=== PATIENT | male | born 1930 | race Hispanic/Latino ===

== ENCOUNTER 2018-08-30 14:49 | Observation (INO) | payer MEDICARE, OTHER ==
[~2018-08-30] VITALS: Ht 157.5 cm; Wt 59.0 kg
--- NOTE | 2018-08-30 16:05 | NUR ---
Emergency contact Maximino Burns [phone] Eri [phone]
[2018-08-30 16:24] LABS: BASOPHILS % 0.4 % (0.0-1.0); EOSINOPHILS # (AUTO) 0.1 (0.0-0.4); EOSINOPHILS % 1.1 % (0.0-6.0); HEMATOCRIT 36.1 % (38.2-49.6); LYMPHOCYTES % 18.2 % (18.0-39.1); MEAN CORPUSCULAR HEMOGLOBIN 31.9 pg (28-32); MEAN CORPUSCULAR HGB CONC 33.2 g/dL (31-35); MONOCYTES # (AUTO) 0.7 (0.2-0.8); MONOCYTES % 12.8 % (4.4-11.3); NEUTROPHILS # (AUTO) 3.8 (2.1-6.9); NEUTROPHILS % 67.3 % (38.7-80.0); PLATELET COUNT 155 x10e3/uL (140-360); RED BLOOD COUNT 3.76 x10e6/uL (4.3-5.7); RED CELL DISTRIBUTION WIDTH 14.2 % (11.7-14.4)
[2018-08-30 16:39] LABS: ALANINE AMINOTRANSFERASE 94 IU/L (0-55); ALBUMIN 2.8 g/dL (3.5-5.0); ALBUMIN/GLOBULIN RATIO 0.7 (0.8-2.0); ALKALINE PHOSPHATASE 627 IU/L (40-150); ANION GAP 12.1 mmol/L (8-16); BLOOD UREA NITROGEN 16 mg/dL (7-26); BUN/CREATININE RATIO 17 (6-25); CALCIUM 9.3 mg/dL (8.4-10.2); CARBON DIOXIDE 26 mmol/L (22-29); CHLORIDE 104 mmol/L (98-107); CREATININE, SERUM 0.92 mg/dL (0.72-1.25); EST GLOMERULAR FILTRATION RATE > 60 ML/MIN (60-); GLUCOSE 96 mg/dL (74-118); LIPASE 56 U/L (8-78); POTASSIUM 4.1 mmol/L (3.5-5.1); SODIUM 138 mmol/L (136-145)
[2018-08-30 16:43] LABS: BILIRUBIN,DIRECT 10.1 mg/dL (0.0-0.5)
[2018-08-30 17:13] LABS: INR 1.24; PROTHROMBIN TIME 16.2 seconds (11.9-14.5)
[2018-08-30 17:14] LABS: PARTIAL THROMBOPLASTIN TIME 40.1 seconds (23.8-35.5)
[2018-08-30] MEDS ORDERED: SODIUM CHLORIDE FLUSH 10 ML SYR INJ PRN (17:15)
[2018-08-30] MEDS ORDERED: ONDANSETRON HCL INJ 2MG/ML 2ML 2 MG/ML VIAL IV PRN (17:15)
--- NOTE | 2018-08-30 18:18 | NUR ---
Admitted with principal dgx hyperbilirubinemia and consults to Dr. Katehrine Laguerre and Dr. Hutchison. secretary to board of commissioners calling consults at this time Received patient from ER, a/ox2, in bed and no resp distress, in bed with bed alarms in place, appears to be mostly Guamanian speaking. Some forgetfullness, not able to fully recollect full account of history, family not at bedside but bed alarms in place, VSS and no c/o pains, bed in low locked position and call light within reach.
[2018-08-30 18:33] VITALS: BP 178/84
[2018-08-30] MEDS ORDERED: NAMENDA10 MG PO (18:45)
[2018-08-30] MEDS ORDERED: DONEPEZIL HCL5 MG PO (18:45)
[2018-08-30] MEDS ORDERED: LOSARTAN POTASS25 MG PO (18:45)
--- NOTE | 2018-08-30 19:45 | Consultation ---
DATE OF CONSULTATION: 08/30/2018 REASON FOR CONSULTATION: Left inguinal hernia. HISTORY OF PRESENT ILLNESS: The patient is an 87-year-old male known to me from previous office visits. He is admitted now with progressive jaundice. The patient is senile and does not give a history. I have been consulted because of the family's concern with a left inguinal hernia, which was evaluated by by me last month at the office. At that time, I advised the family that the hernia which was inguinoscrotal and reducible and asymptomatic did not require any surgery because at that time. I advised at that time to have the patient see a urologist because he was having severe symptoms of prostatic hypertrophy and that this could be a factor in exacerbating the hernia. The patient in the interim developed progressive jaundice. Reason for this admission .HI liver enzymes are grossly abnormal with a bilirubin of 11 increased from [address] shows a distended gallbladder and no gross ductal dilatation with no evdence of cholecystitis . His white count is normal. PHYSICAL EXAMINATION: Patiient is afebrile and in no acute distress . The patient is jaundiced. Abdomen is benign. On examination of the groins at this point, with the patient lying down, there is no hernia that it is palpable in the groin or in the scrotum. ASSESSMENT: 1. Left inguinal hernia, which is at this point reducible and not giving him any problems at this time. 2. Severe jaundice, which is progressive, rule out malignancy vs liver failure,doubt cholecystitis. RECOMMENDATION: My recommendation is not to do anything regarding the hernia at this time, to observe him .Obviously he will need a GI workup which has been already requested with GI, Dr. Lara because of the jaundice.If he has liver failure I believe any elective surgery should be be avoided until the nature of his jaundice is worked up.This has been discussed with his grandson. Thank you very much for the courtesy of this consultation. MD BARRINGTON Nur/JOE /[id number]
--- NOTE | 2018-08-30 20:20 | NUR ---
PT OFF UNIT FOR CT OF THE ABDOMEN
--- NOTE | 2018-08-30 20:46 | NUR ---
SPOKE TO DR. MITCHELL AT THIS TIME REGARDING PT HOME MEDS. NEW ORDER RCV TO CONTINUE HOME MEDS
[2018-08-30 20:48] VITALS: BP 174/79
[2018-08-30] MEDS: DONEPEZIL HCL 5 MG TAB PO SCH (21:15)
[2018-08-30] MEDS ORDERED: MEMANTINE 10 MG TAB PO SCH (21:15)
--- NOTE | 2018-08-30 21:16 | Diagnostic Imaging Report ---
EXAMINATION: CT of the abdomen and pelvis with contrast. TECHNIQUE: Helical CT images of the abdomen and pelvis were performed from the lung bases to the lesser trochanters after the intravenous administration of 100 cc of Omnipaque 300 and the oral administration of none. Coronal and sagittal reformatted images were obtained.Dose modulation, iterative reconstruction, and/or weight based adjustment of the mA/kV was utilized to reduce the radiation dose to as low as reasonably achievable. COMPARISON: None. CLINICAL HISTORY:Pain, jaundice DISCUSSION: ABDOMEN/PELVIS: LOWER THORAX:Unremarkable. HEPATOBILIARY: No focal hepatic lesions. No intra-or extrahepatic biliary ductal dilation. Gallbladder is hydropic. Mild intrahepatic dilation. SPLEEN: No splenomegaly. PANCREAS: No focal masses or ductal dilatation. ADRENALS: No adrenal nodules. KIDNEYS/URETERS: Bilateral simple renal cysts, largest on the left 7.6 cm and on the right 6.5 cm. PELVIC ORGANS/BLADDER: The bladder is normal. PERITONEUM/RETROPERITONEUM: No free air or fluid. LYMPH NODES: No intra-abdominal, retroperitoneal, pelvic or inguinal lymphadenopathy. VESSELS: Unremarkable. GI TRACT: No distention or wall thickening. BONES AND SOFT TISSUE: No bony destructive lesions. Left inguinal hernia containing colon. No obstruction. IMPRESSION: No acute CT finding. Distended gallbladder with minimal intrahepatic biliary dilatation. No visualized mass. Simple renal cysts. Left inguinal hernia containing sigmoid colon. No obstruction. Signed by: Dr. Vik Marrero M.D. on 08/30/2018 9:13 PM
[2018-08-30] MEDS: LOSARTAN POTASSIUM 25 MG TAB PO SCH (22:05)
--- NOTE | 2018-08-30 22:24 | Diagnostic Imaging Report ---
HEPATOBILIARY SCAN INDICATION: Transaminitis; jaundice (total bilirubin level 14 mg/dL. Report: Following the administration of 6 mCi of Tc-99m mebrofenin, dynamic images of the abdomen in the anterior projection were obtained through 60 minutes. Perfusion of the liver is normal. The liver is moderately reduced in size. Extraction of tracer from the blood pool by the liver parenchyma is moderately prolonged. The blood pool tracer activity diminishes throughout the study. During the 60 minutes of imaging, no tracer appears within the biliary tract nor in the duodenum or small bowel. Impression: 1. Cholestasis is present and may be obstructive or metabolic. Absence of secretion of tracer by the impaired hepatocytes into the biliary tract precludes filling of the gallbladder. 2. Reduced liver size and impaired hepatocyte function. Signed by: Dr. Larissa Montana M.D. on 08/30/2018 10:21 PM
[2018-08-31] VITALS (8 sets, daily range): BP systolic 116–155; BP diastolic 55–80
[2018-08-31] MEDS ORDERED: IOPAMIDOL 370 MG/ML 200 ML INFUS..BTL INJ ONE (01:28)
[2018-08-31] MEDS ORDERED: SODIUM CHLORIDE 0.9% 50ML 50 ML ONE (01:28)
--- NOTE | 2018-08-31 01:40 | Consultation ---
DATE OF CONSULTATION: 08/30/2018 REASON FOR CONSULT: Progressive jaundice. HISTORY OF PRESENTING ILLNESS: This is an 87-year-old very pleasant male. He speaks his Polish only. I derived medical history from his grandson who is at the bedside. His grandson's name is Shon. The patient has had a routine blood work by his primary care provider, Dr. Baltazar. He was found to have abnormal liver enzymes. The patient has a subsequent blood work done after a few days to check the trend of the liver enzymes. As per patient's grandson, his liver enzymes kept climbing up. Therefore, he was directed to come to get admitted through the emergency room for further evaluation and workup. The patient apparently has lost a significant amount of weight. The patient is not able to quantitate at this time. His appetite has also gone down. He has also noticed urine is turning more dark-colored, stool is juno-colored. Denies any associated nausea or vomiting. No prior history of any peptic ulcer disease. No chronic use of any NSAIDs. The patient has not had any upper endoscopy or colonoscopy in recent time. He has had last CT scan of abdomen and pelvis on 12/15/2012 that was done for evaluation of rectal pain. REVIEW OF SYSTEMS: A 12-point system reviewed, symptomatology is limited to GI system. PAST MEDICAL HISTORY: Hypertension, dementia and left inguinal hernia . PAST SURGICAL HISTORY: Cataract surgery. FAMILY HISTORY: Noncontributory given his advanced age. SOCIAL HISTORY: No smoking, alcohol, or any illicit drug use. He drank alcohol and smoked when he was young. ALLERGIES: NO KNOWN DRUG ALLERGIES. OUTPATIENT MEDICATIONS: Memantine and losartan. PHYSICAL EXAMINATION: VITAL SIGNS: Temperature 96.8, pulse 67, respirations 18, blood pressure 178/84, oxygen saturation 100% on room air. GENERAL: Not in any acute distress. Looked jaundiced. HEENT: Oral mucosa is moist. Bilateral icteric sclerae. NECK: No neck adenopathy. CVS: S1, S2 regular. LUNGS: Bilaterally grossly clear. ABDOMEN: Soft, nondistended, and nontender. No palpable mass, left incomplete inguinal hernia. Bowel sounds present. EXTREMITIES: Warm. No leg edema. LABORATORY DATA: Blood work revealed WBC 5.70, hemoglobin 12, hematocrit 36.1, MCV 96, and platelet count 155. Electrolytes normal. BUN 16, creatinine 0.92. Liver enzymes showed a total bilirubin 14, direct bilirubin 10.1, AST 146, ALT 494, alkaline phosphatase 627, PT 16.2, INR 1.24, PTT 40.1. I do not have any previous liver enzymes values. IMPRESSION: Progressive jaundice, rule out biliary obstruction. PLAN: Urgent CT scan with IV and oral contrast. Continue low-salt diet. Further recommendation based upon CT findings. Magdy Quiroga MD SA/MODL /[id number]
[2018-08-31 06:09] LABS: BASOPHILS % 0.5 % (0.0-1.0); EOSINOPHILS # (AUTO) 0.1 (0.0-0.4); EOSINOPHILS % 1.7 % (0.0-6.0); HEMATOCRIT 34.9 % (38.2-49.6); HEMOGLOBIN 11.2 g/dL (14.0-18.0); LYMPHOCYTES % 17.6 % (18.0-39.1); MEAN CORPUSCULAR HEMOGLOBIN 31.3 pg (28-32); MEAN CORPUSCULAR HGB CONC 32.1 g/dL (31-35); MEAN CORPUSCULAR VOLUME 97.5 fL (81-99); MONOCYTES # (AUTO) 0.9 (0.2-0.8); MONOCYTES % 14.7 % (4.4-11.3); NEUTROPHILS # (AUTO) 3.8 (2.1-6.9); NEUTROPHILS % 65.3 % (38.7-80.0); PLATELET COUNT 170 x10e3/uL (140-360); RED BLOOD COUNT 3.58 x10e6/uL (4.3-5.7)
[2018-08-31 06:18] LABS: ALANINE AMINOTRANSFERASE 78 IU/L (0-55); ALBUMIN 2.4 g/dL (3.5-5.0); ALBUMIN/GLOBULIN RATIO 0.7 (0.8-2.0); ALKALINE PHOSPHATASE 572 IU/L (40-150); BLOOD UREA NITROGEN 14 mg/dL (7-26); BUN/CREATININE RATIO 18 (6-25); CALCIUM 8.8 mg/dL (8.4-10.2); CARBON DIOXIDE 27 mmol/L (22-29); CHLORIDE 106 mmol/L (98-107); EST GLOMERULAR FILTRATION RATE > 60 ML/MIN (60-); GLUCOSE 108 mg/dL (74-118); MAGNESIUM 1.7 MG/DL (1.3-2.1); PHOSPHORUS 3.2 MG/DL (2.3-4.7); SODIUM 140 mmol/L (136-145)
--- NOTE | 2018-08-31 07:00 | NUR ---
PT RESTING IN CHAIR AA0X1. PT HAS HX OF DEMENTIA FAMILY (SON ) IS AT BEDSIDE AT ALL TIMES PT DENIES PAIN. RIGHT WRIST 20G SL PATENT AND DRY PT IS ON RA, NO SOB NOTED WILL CONTINUE TO MONITOR PT CLOSELY, SIDE RAILSX2, BED WHEELS LOCKED CALL LIGHT IS WITHIN EASY REACH, INSTRUCTED TO CALL FOR ASSISTANCE IF NEEDED
--- NOTE | 2018-08-31 08:20 | NUR ---
PT FAMILY C/O OF SURGEON Sybil CULP BEING RUDE , PT REQUESTING ANOTHER PHYSICIAN . CONTACT MD MITCHELL. ORDERS TO CONSULT MD LIZ GIVEN WILL CALL BOTH SURGEONS TO NOTIFY THEM
[2018-08-31] MEDS: DONEPEZIL HCL 5 MG TAB PO SCH (08:44)
[2018-08-31] MEDS: MEMANTINE 10 MG TAB PO SCH ×2 (08:45→21:01)
[2018-08-31] MEDS: LOSARTAN POTASSIUM 25 MG TAB PO SCH (08:47)
--- NOTE | 2018-08-31 09:02 | NUR ---
SPOKE TO MD MITCHELL REGARDING PT C/O OF PAIN. NEW ORDERS RECEIVED
[2018-08-31] MEDS ORDERED: MORPHINE SULFATE INJ 4 MG/ML INJ 1ML IV PRN (09:15)
--- NOTE | 2018-08-31 13:04 | NUR ---
SPOKE WITH HELLEN REGARDING PLAN OF CARE IN TERMS OF GI READ CT RESULTS STATES HE WILL ROUND ON PT TODAY AND DECIDE
--- NOTE | 2018-08-31 16:31 | NUR ---
Call placed to Dr peña regarding patient wandering and found in another patients room. Family was at bedside and informed SOLUTIONS DEVELOPMENT ANALYST that "He does not listen to me. Can you call the dr." Asked MD for a prn sitter order at this time. Will await call back
--- NOTE | 2018-08-31 17:11 | NUR ---
SPOKE WITH MD MITCHELL REGARDING PT ALERTNESS AA0X1 AND WANTING TO LEAVE ROOM AND HOSPITAL EXIT WHEN FAMILY LEAVES ORDERS FOR PRN ATIVAN AND SITTER GIVEN
[2018-08-31] MEDS ORDERED: LORAZEPAM INJ 2 MG/ML VIAL IV PRN (17:15)
--- NOTE | 2018-09-01 02:17 | Progress Note ---
DATE: 08/31/2018 GI Progress Report SUBJECTIVE: The patient continues to have low appetite. Denies any abdominal pain. Urine continues to be dark color. REVIEW OF SYSTEMS: GENERAL: Lethargy, fatigue and weakness. CVS: No chest pain or palpitation. RESPIRATORY: No cough or expectoration. MEDICATIONS: Reviewed as per MAR. PHYSICAL EXAMINATION: VITAL SIGNS: Stable. GENERAL: Jaundice, icteric. HEENT: Bilateral icteric sclerae. ABDOMEN: Soft, nondistended, nontender. No palpable mass or hernia. Positive bowel sound. LABORATORY DATA: Reviewed, liver enzymes trending down. CT of the abdomen and pelvis with contrast revealed hydrops gallbladder, mild intrahepatic biliary ductal dilatation, no biliary dilatation otherwise, no pancreatic mass. Abnormal liver enzymes, no obstructive cause found on CT. PLAN: Continue supportive care. I will check a viral hepatitis serology. Surgery is following for hydrops gallbladder. We will also check tumor marker. If surgery is not doing anything for the gallbladder, then the patient can be discharged from GI standpoint. I will follow in my office for further workup related to abnormal liver enzymes. Magdy Quiroga MD SA/JOE /[id number]
[2018-09-01 04:24] VITALS: BP 141/68
--- NOTE | 2018-09-01 07:00 | NUR ---
BEDSIDE REPORT GIVEN. 1:1 sitter at bedside.
[2018-09-01] MEDS ORDERED: TYLENOL WITH C1 EACH PO (07:46)
[2018-09-01] MEDS ORDERED: XANAX0.25 MG PO (07:46)
[2018-09-01 08:00] VITALS: BP 131/66
[2018-09-01 08:40] VITALS: BP 131/66
[2018-09-01] MEDS: MEMANTINE 10 MG TAB PO SCH (09:00)
[2018-09-01] MEDS: DONEPEZIL HCL 5 MG TAB PO SCH (09:00)
[2018-09-01] MEDS: LOSARTAN POTASSIUM 25 MG TAB PO SCH (09:00)
[2018-09-01] MEDS ORDERED: ONDANSETRON HCL 4 MG ORAL DISINTEGRATING TAB PO PRN (10:15)
--- NOTE | 2018-09-01 10:41 | NUR ---
PT DISCHARGED AT THIS TIME IV REMOVED EARLIER. DISCHARGE INSTRUCTIONS GIVEN EARLIER WITH PRESCRIPTIONS
== END 2018-09-01 10:41 | disposition home or self-care (01) ==
LOC: ER 14:49 → INTOOBSV 17:03 → ERHOLD 17:03 → MED/SURG 18:08
PROVIDERS: ADMIT Internal Medicine; ATTEND Internal Medicine
DX: K40.90 Unilateral inguinal hernia, without obstruction or gangrene, not specified as recurrent (principal); R74.0 Nonspecific elevation of levels of transaminase and lactic acid dehydrogenase [LDH]; R17 Unspecified jaundice
CPT/HCPCS: 36415 ×2; 74177; 78227; 80053 ×2; 82140; 82248; 82977; 83690; 83735; 84100; 85025 ×2; 85610; 85730; 86140; 99284; A9537; G0378 ×3; Q9967

== ENCOUNTER 2019-09-24 00:37 | Inpatient (IN) | payer MEDICARE, OTHER ==
[~2019-09-24] VITALS: Ht 165.1 cm; Wt 60.1 kg
[~2019-09-24 00:37] MED LIST: DONEPEZIL HCL5 MG PO; LOSARTAN POTASS25 MG PO; NAMENDA10 MG PO; TYLENOL WITH C1 EACH PO; XANAX0.25 MG PO
[2019-09-24] MEDS ORDERED: CEFEPIME 2 GM/NS 0.9% 100 ML 100 ML IV ONE (00:45)
[2019-09-24] MEDS ORDERED: ACETAMINOPHEN 325 MG TAB PO ONE (00:45)
[2019-09-24] MEDS ORDERED: SODIUM CHLORIDE 0.9% 1000ML 1,000 ML IV ONE ×2 (00:45→04:45)
--- NOTE | 2019-09-24 01:03 | NUR ---
PTS GRANDSON, POA, THAT LIVES WITH PATIENT WILL ACCOMPANY PT TO BS PT HAS ADVANCED DEMENTIA AND IS COVID PUI; AOS INFORMED
--- NOTE | 2019-09-24 01:16 | Emergency Department Note ---
History of Present Illnes History of Present Illness Chief Complaint: General Medicine Complaints History of Present Illness This is a 88 year old male with advanced Alzheimer's brought in by his grandson with complaint of fever, weakness, abdominal pain since Tuesday. Per grandson patient has not had any nausea vomiting diarrhea has not had any cough. . Historian: Family Member (ENTIRE HPI PER GRANDSON) Arrival Mode: Car Onset (how long ago): day(s) (2) Location: ABD Quality: PAIN Radiation: Reports non-radiation Severity: mild Onset quality: gradual Duration (how long): day(s) (2) Progression: unchanged Chronicity: new Relieving factors: none Exacerbating factors: none Associated symptoms: Reports fever/chills, Reports weakness Treatments prior to arrival: none Past Medical/Family History Physician Review I have reviewed the patient's past medical and family history. Any updates have been documented here. Past Medical History Recent Fever: No Clinical Suspicion of Infectio: No New/Unexplained Change in Ment: No Past Medical History: Hypertension Other Medical History: DEMENTIA Past Surgical History: Cataract Removal Other Surgery: BILE DUCT Family History Family history of heart diseas: No Other Last Tetanus: OOD Review of Systems ROS Narrative Unable to obtain ROS: other (ROS PRE GRANDSON PT'S SENIOR SOLUTIONS ENGINEER) Review of Systems Constitutional: Reports as per HPI EENTM: Reports no symptoms Cardiovascular: Reports no symptoms Respiratory: Reports no symptoms Gastrointestinal: Reports as per HPI Genitourinary: Reports no symptoms Musculoskeletal: Reports no symptoms Integumentary: Reports no symptoms Neurological: Reports no symptoms Psychological: Reports no symptoms Endocrine: Reports no symptoms Hematological/Lymphatic: Reports no symptoms Physical Exam Related Data Allergies: Coded Allergies: No Known Allergies (Unverified , 08/30/18) Triage Vital Signs Vital Signs Date Time Temp Pulse Resp B/P (MAP) Pulse Ox O2 Delivery O2 Flow Rate FiO2 09/24/19 00:38 100.0 91 21 164/91 98 Vital signs reviewed: Yes Physical Exam CONSTITUTIONAL Constitutional: Present well-developed, Present well-nourished HENT HENT: Present normocephalic, Present atraumatic, Present oropharynx clear/moist, Present nose normal HENT L/R: Present left ext ear normal, Present right ext ear normal EYES Eyes: Reports PERRL, Reports conjunctivae normal NECK Neck: Present ROM normal PULMONARY Pulmonary: Present effort normal, Present other (DECREASED BS AT BASES MARIANGEL ATERAL) CARDIOVASCULAR Cardiovascular: Present regular rhythm, Present heart sounds normal, Present capillary refill normal, Present tachycardia (106) GASTROINTESTINAL Abdominal: Present soft, Present bowel sounds normal, Present tender (LEFT ABD, UPPER ABD MILD) GENITOURINARY Genitourinary: Present exam deferred SKIN Skin: Present warm, Present dry MUSCULOSKELETAL Musculoskeletal: Present ROM normal NEUROLOGICAL Neurological: Present alert, Present oriented x 3, Present no gross motor or sensory deficits PSYCHOLOGICAL Psychological: Present mood/affect normal, Present judgement normal Results Laboratory Laboratory Laboratory Tests Test 09/24/19 04:18 09/24/19 00:39 09/24/19 00:04 Urine Color Yellow (YELLOW) Urine Clarity Clear (CLEAR) Urine pH 7 (5 - 7) Urine Specific [place] 1.015 (1.010-1.025) Urine Protein Negative (NEGATIVE) Urine Glucose (UA) Negative (NEGATIVE) Urine Ketones Negative (NEGATIVE) Urine Blood Negative (NEGATIVE) Urine Nitrite Negative (NEGATIVE) Urine Bilirubin Negative (NEGATIVE) Urine Urobilinogen 0.2 mg/dL (0.2 - 1) Urine Leukocyte Esterase Negative (NEGATIVE) Urine RBC 0-5 /HPF (0-5) Urine WBC 0-5 /HPF (0-5) Urine Epithelial Cells Few /LPF (NONE) Urine Bacteria Rare /HPF (NONE) Prothrombin Time 13.1 seconds (11.9-14.5) Prothromb Time International Ratio 0.94 Activated Partial Thromboplast Time 35.4 seconds (23.8-35.5) White Blood Count 13.76 x10e3/uL (4.8-10.8) Red Blood Count 3.67 x10e6/uL (4.3-5.7) Hemoglobin 10.8 g/dL (14.0-18.0) Hematocrit 34.6 % (38.2-49.6) Mean Corpuscular Volume 94.3 fL (81-99) Mean Corpuscular Hemoglobin 29.4 pg (28-32) Mean Corpuscular Hemoglobin Concent 31.2 g/dL (31-35) Red Cell Distribution Width 12.3 % (11.7-14.4) Platelet Count 163 x10e3/uL (140-360) Neutrophils (%) (Auto) 74.5 % (38.7-80.0) Lymphocytes (%) (Auto) 13.1 % (18.0-39.1) Monocytes (%) (Auto) 11.5 % (4.4-11.3) Eosinophils (%) (Auto) 0.3 % (0.0-6.0) Basophils (%) (Auto) 0.2 % (0.0-1.0) Neutrophils # (Auto) 10.3 (2.1-6.9) Lymphocytes # (Auto) 1.8 (1.0-3.2) Monocytes # (Auto) 1.6 (0.2-0.8) Eosinophils # (Auto) 0.0 (0.0-0.4) Basophils # (Auto) 0.0 (0.0-0.1) Absolute Immature Granulocyte (auto 0.06 x10e3/uL (0-0.1) Sodium Level 134 mmol/L (136-145) Potassium Level 4.8 mmol/L (3.5-5.1) Chloride Level 100 mmol/L (98-107) Carbon Dioxide Level 22 mmol/L (22-29) Anion Gap 16.8 mmol/L (8-16) Blood Urea Nitrogen 30 mg/dL (7-26) Creatinine 1.13 mg/dL (0.72-1.25) Estimat Glomerular Filtration Rate > 60 ML/MIN (60-) BUN/Creatinine Ratio 27 (6-25) Glucose Level 130 mg/dL (74-118) Lactic Acid Level 2.0 mmol/L (0.5-2.0) Calcium Level 9.5 mg/dL (8.4-10.2) Total Bilirubin 0.4 mg/dL (0.2-1.2) Aspartate Amino Transf (AST/SGOT) 18 IU/L (5-34) Alanine Aminotransferase (ALT/SGPT) 14 IU/L (0-55) Alkaline Phosphatase 214 IU/L (40-150) Creatine Kinase 66 IU/L (30-200) Creatine Kinase MB 1.30 ng/mL (0-5.0) Troponin I 0.045 ng/mL (0-0.300) Total Protein 8.3 g/dL (6.5-8.1) Albumin 3.4 g/dL (3.5-5.0) Globulin 4.9 g/dL (2.3-3.5) Albumin/Globulin Ratio 0.7 (0.8-2.0) Laboratory Tests Test 09/24/19 00:39 09/24/19 00:04 Prothrombin Time 13.1 seconds (11.9-14.5) Prothromb Time International Ratio 0.94 Activated Partial Thromboplast Time 35.4 seconds (23.8-35.5) White Blood Count 13.76 x10e3/uL (4.8-10.8) Red Blood Count 3.67 x10e6/uL (4.3-5.7) Hemoglobin 10.8 g/dL (14.0-18.0) Hematocrit 34.6 % (38.2-49.6) Mean Corpuscular Volume 94.3 fL (81-99) Mean Corpuscular Hemoglobin 29.4 pg (28-32) Mean Corpuscular Hemoglobin Concent 31.2 g/dL (31-35) Red Cell Distribution Width 12.3 % (11.7-14.4) Platelet Count 163 x10e3/uL (140-360) Neutrophils (%) (Auto) 74.5 % (38.7-80.0) Lymphocytes (%) (Auto) 13.1 % (18.0-39.1) Monocytes (%) (Auto) 11.5 % (4.4-11.3) Eosinophils (%) (Auto) 0.3 % (0.0-6.0) Basophils (%) (Auto) 0.2 % (0.0-1.0) Neutrophils # (Auto) 10.3 (2.1-6.9) Lymphocytes # (Auto) 1.8 (1.0-3.2) Monocytes # (Auto) 1.6 (0.2-0.8) Eosinophils # (Auto) 0.0 (0.0-0.4) Basophils # (Auto) 0.0 (0.0-0.1) Absolute Immature Granulocyte (auto 0.06 x10e3/uL (0-0.1) Sodium Level 134 mmol/L (136-145) Potassium Level 4.8 mmol/L (3.5-5.1) Chloride Level 100 mmol/L (98-107) Carbon Dioxide Level 22 mmol/L (22-29) Anion Gap 16.8 mmol/L (8-16) Blood Urea Nitrogen 30 mg/dL (7-26) Creatinine 1.13 mg/dL (0.72-1.25) Estimat Glomerular Filtration Rate > 60 ML/MIN (60-) BUN/Creatinine Ratio 27 (6-25) Glucose Level 130 mg/dL (74-118) Lactic Acid Level 2.0 mmol/L (0.5-2.0) Calcium Level 9.5 mg/dL (8.4-10.2) Total Bilirubin 0.4 mg/dL (0.2-1.2) Aspartate Amino Transf (AST/SGOT) 18 IU/L (5-34) Alanine Aminotransferase (ALT/SGPT) 14 IU/L (0-55) Alkaline Phosphatase 214 IU/L (40-150) Creatine Kinase 66 IU/L (30-200) Creatine Kinase MB 1.30 ng/mL (0-5.0) Troponin I 0.045 ng/mL (0-0.300) Total Protein 8.3 g/dL (6.5-8.1) Albumin 3.4 g/dL (3.5-5.0) Globulin 4.9 g/dL (2.3-3.5) Albumin/Globulin Ratio 0.7 (0.8-2.0) Lab results reviewed: Yes Imaging Imaging results reviewed: Yes Impressions CT ABD/PELVIS IMPRESSION: 1. Several new hepatic hypodense lesions. Differentials include metastatic disease versus abscesses. 2. Bibasilar peripheral reticular lung markings, right ureter left, probably fibrotic changes. Underlying pneumonia in the right lung base cannot be excluded in the appropriate clinical context. 3. Enlarged prostate gland. Procedure: [id number] DX/CHEST SINGLE (PORTABLE) Exam Date: Exam Time: REPORT STATUS: Signed EXAMINATION: CHEST SINGLE (PORTABLE) INDICATION: ^Y ^FEVER ^Y COMPARISON: None FINDINGS: AP view TUBES and LINES: None. LUNGS: Low lung volumes. Central vascular congestion, accentuated by low lung volumes. Mild bibasilar subsegmental atelectasis. PLEURA: No significant pleural effusion or pneumothorax. HEART AND MEDIASTINUM: The cardiomediastinal silhouette is prominent on this AP view, accentuated by lower volumes. BONES AND SOFT TISSUES: No acute osseous lesion. Soft tissues are unremarkable. UPPER ABDOMEN: No free air under the diaphragm. IMPRESSION: Central vascular congestion, accentuated by low lung volumes. Underlying pneumonia in the perihilar regions cannot be excluded in the appropriate clinical context. Signed by: Dr. Tacho Draper MD on 09/24/2019 3:43 AM Procedures 12 Lead ECG Interpretation ECG Interpretation : ECG: ECG 1 Milk And Cream Grader: Interpreted by ED physician Date: Sep 24, 2019 Time: 01:16 Rhythm: sinus rhythm Rate: normal BPM: 90 QRS axis: normal T waves normal: Yes Other findings: no other findings Clinical Impression: normal ECG Assessment & Plan Medical Decision Making MDM Patient up and ultimately is brought in by grandson who is his smokehouse worker for reported fever abdominal pain weakness. Symptoms ongoing for 2 days. CBC, CMP, CARDIAC enzymes, EKG, chest x-ray, blood cultures, UA, urine culture, lactic acid, Covid 19, CT abdomen and pelvis, ordered to eval for sepsis, UTI, pneumonia, electrolyte abnormality, myocardial infarction, diverticulitis, colitis, bowel obstruction, Covid 19, Cefepime 2 g IV ordered. Tylenol 975 mg by mouth ordered. 1 L normal saline IV ordered. 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 I spoke with Dr. Palomino patient Rocky for pneumonia. Patient's Covid test is pending. Assessment & Plan Final Impression: (1) Fever (2) Pneumonia Depart Disposition: ADMITTED Last Vital Signs Date Time Temp Pulse Resp B/P (MAP) Pulse Ox O2 Delivery O2 Flow Rate FiO2 09/24/19 00:38 100.0 91 21 164/91 98 Home Meds Active Scripts Acetaminophen With Codeine (TYLENOL WITH CODEINE #3 TABLET) 1 Each Tablet, 300 MG PO Q8H PRN for pain, #30 TAB Prov:ASH MITCHELL MD 09/01/18 Alprazolam (XANAX) 0.25 Mg Tablet, 0.25 MG PO Q8H for 10 Days Prov:ASH MITCHELL MD 09/01/18 Reported Medications Memantine Hcl (NAMENDA) 10 Mg Tablet, 10 MG PO BID, #30 TAB 08/30/18 Donepezil Hcl (DONEPEZIL HCL) 5 Mg Tablet, 5 MG PO DAILY 08/30/18 Losartan Potassium (LOSARTAN POTASSIUM) 25 Mg Tablet, 25 MG PO DAILY 08/30/18 Medications in the ED Sodium Chloride 1,000 ml @ 999 mls/hr Q1H1M ONCE IV Last administered on 09/24/19 01:08; Admin Dose 999 MLS/HR; Start 09/24/19 at 00:45; Stop 09/24/19 at 01:45 Cefepime HCl 100 ml @ 200 mls/hr ONCE ONCE IV Last administered on 09/24/19at 01:09; Admin Dose 200 MLS/HR; Start 09/24/19 at 00:45; Stop 09/24/19 at 01:14 Acetaminophen 975 mg ONCE ONCE PO Last administered on 09/24/19at 01:08; Admin Dose 975 MG; Start 09/24/19 at 00:45; Stop 09/24/19 at 00:49; Status DC MARIANNA ABREU MD Sep 24, 2019 01:16
[2019-09-24 01:35] LABS: BASOPHILS % 0.2 % (0.0-1.0); EOSINOPHILS % 0.3 % (0.0-6.0); HEMATOCRIT 34.6 % (38.2-49.6); HEMOGLOBIN 10.8 g/dL (14.0-18.0); LYMPHOCYTES # (AUTO) 1.8 (1.0-3.2); LYMPHOCYTES % 13.1 % (18.0-39.1); MEAN CORPUSCULAR HEMOGLOBIN 29.4 pg (28-32); MEAN CORPUSCULAR HGB CONC 31.2 g/dL (31-35); MEAN CORPUSCULAR VOLUME 94.3 fL (81-99); MONOCYTES # (AUTO) 1.6 (0.2-0.8); MONOCYTES % 11.5 % (4.4-11.3); NEUTROPHILS # (AUTO) 10.3 (2.1-6.9); NEUTROPHILS % 74.5 % (38.7-80.0); PLATELET COUNT 163 x10e3/uL (140-360); RED BLOOD COUNT 3.67 x10e6/uL (4.3-5.7); RED CELL DISTRIBUTION WIDTH 12.3 % (11.7-14.4)
[2019-09-24 01:49] LABS: INR 0.94; PROTHROMBIN TIME 13.1 seconds (11.9-14.5)
[2019-09-24 01:50] LABS: PARTIAL THROMBOPLASTIN TIME 35.4 seconds (23.8-35.5)
[2019-09-24 01:58] LABS: ALANINE AMINOTRANSFERASE 14 IU/L (0-55); ALBUMIN 3.4 g/dL (3.5-5.0); ALBUMIN/GLOBULIN RATIO 0.7 (0.8-2.0); ALKALINE PHOSPHATASE 214 IU/L (40-150); ANION GAP 16.8 mmol/L (8-16); BLOOD UREA NITROGEN 30 mg/dL (7-26); BUN/CREATININE RATIO 27 (6-25); CALCIUM 9.5 mg/dL (8.4-10.2); CARBON DIOXIDE 22 mmol/L (22-29); CHLORIDE 100 mmol/L (98-107); CREATINE KINASE 66 IU/L (30-200); CREATININE, SERUM 1.13 mg/dL (0.72-1.25); EST GLOMERULAR FILTRATION RATE > 60 ML/MIN (60-); GLUCOSE 130 mg/dL (74-118); POTASSIUM 4.8 mmol/L (3.5-5.1); SODIUM 134 mmol/L (136-145)
[2019-09-24] MEDS ORDERED: SODIUM CHLORIDE 0.9% 50ML 50 ML ONE (02:19)
[2019-09-24] MEDS ORDERED: IOPAMIDOL 370 MG/ML 200 ML INFUS..BTL INJ ONE (02:20)
--- NOTE | 2019-09-24 03:45 | Diagnostic Imaging Report ---
EXAM: CT Abdomen and Pelvis WITH contrast INDICATION: ^Y ^ABD PAIN ^Y COMPARISON: CT dated 08/30/2018 TECHNIQUE: Abdomen and pelvis were scanned utilizing a multidetector helical scanner from the lung base to the pubic symphysis after administration of IV contrast. Coronal and sagittal reformations were obtained. Dose modulation, iterative reconstruction, and/or weight based adjustment of the mA/kV was utilized to reduce the radiation dose to as low as reasonably achievable. Routine protocol was performed. Scan was performed when during portal venous phase. IV CONTRAST: 100 mL of Isovue-370 ORAL CONTRAST: None COMPLICATIONS: None RADIATION DOSE: Total DLP: 671.50 mGy*cm Estimated effective dose: (DLP x 0.015 x size factor) mSv CTDIvol has been reviewed. It is below the limits set by the Radiation Protocol Committee (RPC). FINDINGS: LINES and TUBES: Common bile duct stent. LOWER THORAX: Borderline cardiomegaly. Bibasilar peripheral reticular lung markings, right ureter left, probably fibrotic changes. HEPATOBILIARY: Several right and left hepatic lobe hypodense lesions, new from prior exam mild intrahepatic biliary dilatation and new pneumobilia. New common bile duct stent in place. GALLBLADDER: No radio-opaque stones or sludge. No wall thickening. SPLEEN: No splenomegaly. PANCREAS: No focal masses or ductal dilatation. ADRENALS: No adrenal nodules KIDNEYS/URETERS: Kidneys enhance symmetrically. No hydronephrosis. Several bilateral renal cysts, the largest in the left inferior pole is an exophytic cyst measuring 10.8 cm. No stones. GI TRACT: No evidence of bowel obstruction. Rectum is distended with large amount of stool, which could represent fecal impaction. Normal appendix. PELVIC ORGANS/BLADDER: Prostate is enlarged with a coarse calcification. Mild bladder wall thickening, likely due to chronic outflow obstruction. LYMPH NODES: No lymphadenopathy. VESSELS: Unremarkable. PERITONEUM / RETROPERITONEUM: No free air or fluid. BONES: Generalized demineralization. Degenerative changes of spine. Unchanged L2 vertebral body lucency, likely developing Schmorl's node. SOFT TISSUES: Unremarkable. IMPRESSION: 1. Several new hepatic hypodense lesions. Differentials include metastatic disease versus abscesses. 2. Bibasilar peripheral reticular lung markings, right ureter left, probably fibrotic changes. Underlying pneumonia in the right lung base cannot be excluded in the appropriate clinical context. 3. Enlarged prostate gland. Signed by: Dr. Tacho Draper MD on 09/24/2019 3:42 AM
--- NOTE | 2019-09-24 03:46 | Diagnostic Imaging Report ---
EXAMINATION: CHEST SINGLE (PORTABLE) INDICATION: ^Y ^FEVER ^Y COMPARISON: None FINDINGS: AP view TUBES and LINES: None. LUNGS: Low lung volumes. Central vascular congestion, accentuated by low lung volumes. Mild bibasilar subsegmental atelectasis. PLEURA: No significant pleural effusion or pneumothorax. HEART AND MEDIASTINUM: The cardiomediastinal silhouette is prominent on this AP view, accentuated by lower volumes. BONES AND SOFT TISSUES: No acute osseous lesion. Soft tissues are unremarkable. UPPER ABDOMEN: No free air under the diaphragm. IMPRESSION: Central vascular congestion, accentuated by low lung volumes. Underlying pneumonia in the perihilar regions cannot be excluded in the appropriate clinical context. Signed by: Dr. Tacho Draper MD on 09/24/2019 3:43 AM
[2019-09-24 04:32] LABS: CLARITY,URINE CLEAR (CLEAR); COLOR,URINE YELLOW (YELLOW); KETONES,URINE NEGATIVE (NEGATIVE); LEUKOCYTE ESTERASE ,URINE NEGATIVE (NEGATIVE); NITRITE,URINE NEGATIVE (NEGATIVE); PROTEIN,URINE DIPSTICK NEGATIVE (NEGATIVE)
[2019-09-24 04:33] LABS: BACTERIA,URINE RARE /HPF; BILIRUBIN,URINE NEGATIVE (NEGATIVE); EPITHELIAL CELLS,URINE FEW /LPF; RBC,URINE 0-5 /HPF (0-5); URINE UROBILINOGEN 0.2 mg/dL (0.2 - 1); WBC,URINE (MAN) 0-5 /HPF (0-5)
[2019-09-24] MEDS: AZITHROMYCIN 500MG/NS 250 ML 250 ML IV SCH (04:36)
[2019-09-24] MEDS ORDERED: CEFEPIME HCL 2 GM/SOD CHL 0.9% 100 ML BAG IV SCH (06:00)
[2019-09-24] MEDS ORDERED: HYDRALAZINE HCL 20 MG/ML VIAL IV PRN (06:15)
[2019-09-24] MEDS ORDERED: ONDANSETRON HCL INJ 2MG/ML 2ML 2 MG/ML VIAL IV PRN (06:15)
--- NOTE | 2019-09-24 06:51 | NUR ---
REPORT GIVEN TO ROSA RN Addendum: 09/24/19 at 0709 by TRISHA WALKING ROUNDS
[2019-09-24] MEDS: ACETAMINOPHEN 325 MG TAB PO PRN ×2 (08:19→18:48)
[2019-09-24 08:20] LABS: CHOL/HDL RATIO 2.3 (3.9-4.7)
[2019-09-24 09:00] LABS: CREATINE KINASE MB 1.1 ng/mL (0-5.0)
[2019-09-24] MEDS: CEFEPIME 2 GM/NS 0.9% 100 ML 100 ML IV SCH ×2 (10:28→18:25)
[2019-09-24] MEDS: FAMOTIDINE 20 MG/2 ML VIAL IV SCH ×2 (10:28→18:25)
[2019-09-24] MEDS ORDERED: SODIUM CHLORIDE 0.9% 1000ML 1,000 ML ONE (15:53)
[2019-09-24] MEDS: METRONIDAZOLE 500MG/NS 100ML 100 ML IV SCH (16:05)
[2019-09-24] MEDS ORDERED: MEMANTINE 10 MG TAB PO SCH (17:00)
[2019-09-24 20:54] LABS: CREATINE KINASE MB 0.7 ng/mL (0-5.0)
[2019-09-24] MEDS ORDERED: TRAZODONE HCL 50 MG TAB PO SCH (21:00)
[2019-09-24] MEDS ORDERED: QUETIAPINE FUMARATE 100 MG TAB PO SCH (21:00)
--- NOTE | 2019-09-24 21:00 | NUR ---
PT RIPPED OUT IV, PT PULLING OFF ALL MONITORS, PTS GRANDSON AT BEDSIDE ATTEMPTING TO HELP, NOTIFIED DR ANDREWS FOR MEDICATIONS TO HELP WITH ANXIETY, ORDERS RECEIVED AND NOTED, PTS GRANDSON AWARE OF POC
--- NOTE | 2019-09-24 21:15 | Consultation ---
DATE OF CONSULTATION: Pulmonary and Critical Care Consultation CHIEF COMPLAINT: Fever, abdominal pain, and infiltrate on chest x-ray. HISTORY OF PRESENT ILLNESS: The patient is an 88-year-old man. He has a history of dementia as well as prior gastrointestinal problems. He required admission to [facility] in August of 2018 with abnormal liver enzymes and obstructive jaundice. He required antibiotics and biliary stent. He subsequently discovered to have some liver metastasis and some node in the region of the brady hepatis. Two days ago, he went for an EUS procedure at [facility]. He had sampling of the nodes from the brady hepatis. 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 He now comes to the hospital with fever for several days. He also has pain after he eats. He has no nausea or vomiting. In the ER, he had a negative COVID, but his x-ray showed a possible infiltrate. CT scan of the abdomen and pelvis showed some hepatic hypodense lesions suggestive of possible metastasis. PAST SURGICAL HISTORY: 1. Status post left inguinal hernia repair. 2. Status post biliary stent. 3. Recent EUS procedure. 4. Cataract surgery. PAST MEDICAL HISTORY: 1. Hypertension. 2. Dementia. FAMILY HISTORY: Family history is noncontributory. SOCIAL HISTORY: The patient is not an active smoker or drinker. He is here with his grandson. ALLERGIES: THERE ARE NO KNOWN DRUG ALLERGIES. REVIEW OF SYSTEMS: He had some fevers. There is no headache. He is not having any neck pain. He has no chest pain. He does not have any shortness of breath. He has minimal cough. He does have some abdominal discomfort. He has pain after eating. He has no leg edema. He is confused and disoriented. PHYSICAL EXAMINATION: VITAL SIGNS: The blood pressure is 155/70, saturation is 100% and the temperature is a 100, pulse is 84. HEENT: Shows no facial swelling or erythema. CARDIAC: Reveals regular rate and rhythm with normal S1 and S2. LUNGS: Auscultation of lungs reveals clear breath sounds bilaterally. There is no wheezing. ABDOMEN: Soft. There may be some tenderness. There is no rebound. EXTREMITIES: Shows no leg edema or calf tenderness. There is no cyanosis or clubbing. SKIN: Shows no rashes. NEUROLOGIC: Shows some confusion. LABORATORY DATA: White blood cell count is 13.7 and hemoglobin is 10.8. The platelet count is 163. Albumin is 3.4. The BUN to creatinine ratio is 30 to 1.13. Sodium is 134. ASSESSMENT: 1. Abdominal pain with sepsis, present on admission. 2. Aspiration pneumonia. 3. Liver metastases or abscesses. 4. Dehydration. 5. Acute kidney injury. 6. Dementia. PLAN: 1. Continue IV fluids. 2. Continue current antibiotics. 3. GI evaluation. 4. Echocardiogram. 5. Seroquel at night. Kale Donnelly MD [facility]/MODL /[id number]
--- NOTE | 2019-09-24 22:17 | NUR ---
PER KAY PTS FAMILY ALLOWED TO REMAIN AT BEDSIDE A SITTER, PT HAS DEMENTIA AND IS UNABLE TO REMAIN ALONE.
[2019-09-24 22:45] VITALS: BP 146/78
[2019-09-24] MEDS: MEMANTINE 10 MG TAB PO SCH (23:09)
[2019-09-24] MEDS: RISPERIDONE 0.5 MG TAB PO PRN (23:09)
[2019-09-24] MEDS: PAROXETINE HCL 20 MG TAB PO SCH (23:09)
[2019-09-24] MEDS: MELATONIN 5 MG TABLET PO SCH (23:09)
[2019-09-24] MEDS ORDERED: MELATONIN5 M2 (23:35)
[2019-09-24] MEDS ORDERED: PAXIL20 MG PO (23:35)
[2019-09-24 23:46] VITALS: BP 146/78
[2019-09-25] VITALS (8 sets, daily range): BP systolic 112–151; BP diastolic 66–80
[2019-09-25] MEDS: METRONIDAZOLE 500MG/NS 100ML 100 ML IV SCH ×3 (00:29→16:00)
--- NOTE | 2019-09-25 01:12 | Consultation ---
DATE OF CONSULTATION: 09/24/2019 GI Consult Note REASON FOR CONSULT: Multiple liver metastasis, primary unknown. HISTORY OF PRESENTING ILLNESS: An 88-year-old speaking male, who is very well known to me from my interaction with him when he was admitted in this hospital in August last year. At that time, I was consulted for jaundice. Imaging studies at that time did not show any biliary ductal dilatation. However, the patient was discharged home. Subsequently, it was determined that the patient has obstructive jaundice. Therefore, he has had ERCP with metal stent placement by Dr. Adamson in [facility]. This stent was probably placed in September last year. The patient's grandson was told that his common bile duct stricture was not conclusive of malignancy, however, metal stent was placed because it was clinically suspected that it is a malignant biliary stricture. Subsequently, the patient has had a CT scan of the abdomen in February in [facility], that did not show any mass in the pancreas, did not show any mass in the liver. The patient remained asymptomatic. Jaundice has resolved. The patient continued following Dr. Adamson. He has had EUS-FNA, and a cyst aspiration performed by Dr. Adamson on 09/21/2019. A fine-needle aspiration cytology of multiple lymph node at the brady hepatis was performed. There was a cyst found under the surface of the liver, this was also aspirated and on endoscopy, there was a stricture, which appeared malignant noted at the duodenal apex. The endoscopic ultrasound scope could not be advanced into the descending duodenum. Biopsy result of the lymph node as well as fluid aspiration cytology is still pending. The patient is coming to the emergency room today with shaking chills and fever. CT scan repeated with contrast on this admission showed multiple liver masses characteristic of metastasis. He was also found to have some radiographic finding suggestive of pneumonia as well. He has been started on broad-spectrum intravenous antibiotic cefepime as well as metronidazole along with azithromycin. The patient's liver function test is noted normal. White count has elevated to 13.76. The patient's grandson was available at the bedside. I called Dr. Adamson myself. I had Dr. Adamson talk to patient's grandson over the phone. Dr. Adamson explained all the finding about the endoscopic ultrasound and biopsy, which was obtained. He also told him that negative biopsy is not going to rule out any underlying malignancy. Dr. 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 Although, the CT scan done on this admission with contrast do not show any pancreatic head cancer. However, pancreatic head cancer can be missed on CT as well as MRI. Gold standard diagnostic test for pancreatic head malignancy is endoscopic ultrasound. Since Dr. Adamson could not advance the scope into the duodenal apex or into the descending duodenum. Therefore, he was not able to examine the pancreatic head very well. I am being consulted to assist in his management. REVIEW OF SYSTEMS: Twelve point system reviewed, symptomatology is limited as per HPI. PAST MEDICAL HISTORY: Obstructive jaundice, hypertension, dementia. PAST SURGICAL HISTORY: Left inguinal hernia repair, ERCP last year, EUS-FNA last week. Cataract extraction. FAMILY HISTORY: Noncontributory given his advanced age. SOCIAL HISTORY: No smoking, alcohol, or any illicit drug use. MEDICATIONS: Outpatient medications: 1. Acetaminophen with codeine. 2. Alprazolam. 3. Donepezil 5 mg daily. 4. Losartan 25 mg daily. 5. Memantine 10 mg daily. Inpatient medications list reviewed as per JUN. ALLERGIES: NO KNOWN DRUG ALLERGIES. PHYSICAL EXAMINATION: VITAL SIGNS: Temperature 99.6, pulse 99, respirations 20, blood pressure 143/102 to 155/70, oxygen saturation 100% on room air. GENERAL: Drowsy, lethargic. HEENT: Oral mucosa is moist. Anicteric sclerae. CVS: S1, S2. Regular. LUNGS: Bilaterally grossly clear. ABDOMEN: Soft. Palpable right upper quadrant tenderness on mild palpation without rebound, rigidity, or guarding. Positive bowel sounds. EXTREMITIES: Warm. No leg edema. LABORATORY DATA: WBC 13.76, hemoglobin 10.8, hematocrit 34.6, MCV 94.3, and platelet count 163. Sodium 134, potassium 4.8, chloride 100, bicarb 22, BUN 30, creatinine 1.13. Liver enzymes showed a total bilirubin 0.4, AST 18, ALT 14, alkaline phosphatase 214. CT of the abdomen and pelvis with contrast showed: 1. Several new hepatic hypodense lesions. Differentials include metastatic disease versus abscesses. 2. Bibasilar peripheral reticular lung markings, right ureter, left probably fibrotic changes. Underlying pneumonia in the right lung base cannot be excluded in the appropriate clinical context. 3. Enlarged prostate gland. IMPRESSION: 1. The patient is presenting with a fever post EUS-FNA of the lymph node as well as cyst aspiration. 2. Multiple liver metastasis. PLAN: I agree with antibiotic. Oncology consult. I had a detailed discussion with Dr. Adamson as well as patient's grandson. At this point of time, there is no active GI endoscopic intervention indicated. Dr. Adamson is going to call me with the EUS-FNA results. I will continue to follow him clinically. Magdy Quiroga MD [facility]/JOE /[id number]
[2019-09-25] MEDS ORDERED: SODIUM CHLORIDE 0.9% 250ML 250 ML ONE (01:48)
[2019-09-25] MEDS: CEFEPIME 2 GM/NS 0.9% 100 ML 100 ML IV SCH ×3 (02:15→18:03)
[2019-09-25 02:38] LABS: CREATINE KINASE MB 0.7 ng/mL (0-5.0)
[2019-09-25] MEDS: ACETAMINOPHEN 325 MG TAB PO PRN ×2 (03:02→03:03)
[2019-09-25] MEDS: AZITHROMYCIN 500MG/NS 250 ML 250 ML IV SCH (05:35)
[2019-09-25 06:14] LABS: ALANINE AMINOTRANSFERASE 9 IU/L (0-55); ALBUMIN 2.5 g/dL (3.5-5.0); ALBUMIN/GLOBULIN RATIO 0.6 (0.8-2.0); ALKALINE PHOSPHATASE 150 IU/L (40-150); BLOOD UREA NITROGEN 14 mg/dL (7-26); BUN/CREATININE RATIO 18 (6-25); CALCIUM 8.4 mg/dL (8.4-10.2); CARBON DIOXIDE 23 mmol/L (22-29); CHLORIDE 105 mmol/L (98-107); EST GLOMERULAR FILTRATION RATE > 60 ML/MIN (60-); GLUCOSE 103 mg/dL (74-118); SODIUM 137 mmol/L (136-145)
[2019-09-25 06:57] LABS: BASOPHILS % 0.2 % (0.0-1.0); EOSINOPHILS # (AUTO) 0.1 (0.0-0.4); EOSINOPHILS % 0.7 % (0.0-6.0); LYMPHOCYTES # (AUTO) 1.4 (1.0-3.2); MEAN CORPUSCULAR HGB CONC 32.1 g/dL (31-35); MEAN CORPUSCULAR VOLUME 96.6 fL (81-99); MONOCYTES # (AUTO) 1.2 (0.2-0.8); MONOCYTES % 11.2 % (4.4-11.3); NEUTROPHILS # (AUTO) 8.1 (2.1-6.9); NEUTROPHILS % 74.7 % (38.7-80.0); RED CELL DISTRIBUTION WIDTH 12.3 % (11.7-14.4)
[2019-09-25 07:11] LABS: PLATELET COUNT 140 x10e3/uL (140-360)
[2019-09-25 07:12] LABS: PLATELET CLUMPS FEW; PLATELET ESTIMATE ADEQUATE; PLATELET MORPHOLOGY COMMENT NORMAL; RBC MORPHOLOGY COMMENT NORMAL
[2019-09-25] MEDS: DONEPEZIL HCL 5 MG TAB PO SCH (09:00)
[2019-09-25] MEDS: LOSARTAN POTASSIUM 25 MG TAB PO SCH (09:00)
[2019-09-25] MEDS: MEMANTINE 10 MG TAB PO SCH ×2 (09:00→18:24)
--- NOTE | 2019-09-25 09:35 | Diagnostic Imaging Report ---
EXAMINATION: CHEST SINGLE (PORTABLE) INDICATION: ^pneumonia ^[id number] ^0630 COMPARISON: Chest radiograph 09/24/2019 FINDINGS: TUBES and LINES: EKG leads. LUNGS: Lungs are moderately inflated. Central vascular congestion and mild bibasilar subsegmental atelectasis. PLEURA: No significant pleural effusion or pneumothorax. HEART AND MEDIASTINUM: Unchanged BONES AND SOFT TISSUES: No acute osseous injury UPPER ABDOMEN: No free air under the diaphragm. IMPRESSION: No significant interval change. Signed by: Eleonora Omer MD on 09/25/2019 9:32 AM
[2019-09-25] MEDS: FAMOTIDINE 20 MG/2 ML VIAL IV SCH ×2 (10:19→17:50)
--- NOTE | 2019-09-25 18:46 | NUR ---
REPORT GIVEN TO ONCOMING NURSE, WALKING ROUNDS COMPLETE.
--- NOTE | 2019-09-25 20:00 | NUR ---
pt received. pt assessed. no ss of distress noted. no co pain at time. tele in place. family at bedside. will cont to follow poc. call pimentel within reach.
[2019-09-25] MEDS: PAROXETINE HCL 20 MG TAB PO SCH (21:01)
[2019-09-25] MEDS: RISPERIDONE 0.5 MG TAB PO PRN (21:01)
[2019-09-25] MEDS: MELATONIN 5 MG TABLET PO SCH (21:01)
--- NOTE | 2019-09-25 22:22 | Progress Note ---
DATE: 09/25/2019 SUBJECTIVE: The patient reports no fever today. Appetite is still poor. Denies any abdominal pain. REVIEW OF SYSTEMS: GENERAL: Weakness. CVS: No chest pain or palpitation. RESPIRATORY: No cough or expectoration. MEDICATIONS: Memantine 10 mg twice daily, cefepime 2 g IV q.8 hours, famotidine 20 mg IV twice daily, metronidazole 500 mg IV q.8 hours, losartan 25 mg p.o. daily, donepezil 5 mg p.o. daily, azithromycin 250 mg IV q.24 hours, melatonin 5 mg p.o. at bedtime, risperidone 0.5 mg q.12 hours, paroxetine 20 mg p.o. at bedtime, acetaminophen 650 mg p.o. q.4 hours p.r.n., Zofran 4 mg IV q.6 hours p.r.n., and hydralazine 10 mg IV q.4 hours p.r.n. PHYSICAL EXAMINATION: VITAL SIGNS: Temperature 98.4, pulse 81, respiration is 17, blood pressure 151/73, and oxygen saturation 100% on room air. GENERAL: Not in any apparent distress. Oral mucosa is moist. ABDOMEN: Soft. Palpable right upper quadrant tenderness. No rebound, rigidity, or guarding. Positive bowel sounds. LABORATORY DATA: WBC is down to 10.82 from 13.76, hemoglobin 9 down from 10.8, platelet count 140. Sodium 137, potassium 4.0, chloride 105, bicarb 23, BUN 14, and creatinine 0.80. Liver enzymes normal. Chest x-ray showed no significant interval change. Lungs are moderately inflated. Central vascular congestion and mild bibasilar subsegmental atelectasis. IMPRESSION: 1. Multiple liver masses consistent with liver metastasis, primary is most likely either cholangiocarcinoma or pancreatic head malignancy. 2. EUS-FNA of the brady hepatis lymph nodes, cyst under the liver that was aspirated. The patient was not given any antibiotic. I suspect the patient's fever was due to underlying intra-abdominal infection. Blood culture showing no growth. Chest x-ray is not showing any pneumonia. I recommend to continue only cefepime and discontinue rest of the antibiotic. Oncology Service has seen the patient. I will continue to follow him clinically. Magdy Quiroga MD [facility]/JOE /[id number]
[2019-09-25] MEDS ORDERED: MELATONIN 5 MG TABLET PO SCH (22:30)
[2019-09-26] MEDS: METRONIDAZOLE 500MG/NS 100ML 100 ML IV SCH ×3 (00:03→17:23)
[2019-09-26] MEDS: CEFEPIME 2 GM/NS 0.9% 100 ML 100 ML IV SCH ×3 (01:19→17:24)
[2019-09-26] MEDS: AZITHROMYCIN 500MG/NS 250 ML 250 ML IV SCH (03:09)
--- NOTE | 2019-09-26 04:59 | NUR ---
right ac iv infiltrated. iv dc'd catheter tip intact. drsg applied to site. x3 attempt for iv. left ac 20g successful. pt tolerated well. call pimentel within reach. Addendum: 09/26/19 at 0559 by Sandi Brown RN diaper saturated. pt cleaned and repositioned.
[2019-09-26 05:04] VITALS: BP 137/58
[2019-09-26 06:23] LABS: BASOPHILS % 0.3 % (0.0-1.0); EOSINOPHILS # (AUTO) 0.2 (0.0-0.4); EOSINOPHILS % 1.8 % (0.0-6.0); HEMATOCRIT 25.2 % (38.2-49.6); HEMOGLOBIN 7.9 g/dL (14.0-18.0); LYMPHOCYTES # (AUTO) 1.3 (1.0-3.2); LYMPHOCYTES % 14.5 % (18.0-39.1); MEAN CORPUSCULAR HGB CONC 31.3 g/dL (31-35); MEAN CORPUSCULAR VOLUME 92.6 fL (81-99); MONOCYTES # (AUTO) 1.2 (0.2-0.8); MONOCYTES % 12.5 % (4.4-11.3); NEUTROPHILS # (AUTO) 6.5 (2.1-6.9); NEUTROPHILS % 70.6 % (38.7-80.0); PLATELET COUNT 135 x10e3/uL (140-360); RED BLOOD COUNT 2.72 x10e6/uL (4.3-5.7); RED CELL DISTRIBUTION WIDTH 12.2 % (11.7-14.4)
[2019-09-26 06:47] LABS: BLOOD UREA NITROGEN 16 mg/dL (7-26); BUN/CREATININE RATIO 21 (6-25); CALCIUM 7.9 mg/dL (8.4-10.2); CARBON DIOXIDE 24 mmol/L (22-29); CHLORIDE 105 mmol/L (98-107); CREATININE, SERUM 0.75 mg/dL (0.72-1.25); EST GLOMERULAR FILTRATION RATE > 60 ML/MIN (60-); GLUCOSE 100 mg/dL (74-118); MAGNESIUM 1.6 MG/DL (1.3-2.1); PHOSPHORUS 3.1 MG/DL (2.3-4.7); SODIUM 139 mmol/L (136-145)
--- NOTE | 2019-09-26 07:00 | NUR ---
BEDSIDE SHIFT REPORT FROM TITRATOR RN. PT DENIES NEEDS AT THIS TIME.
[2019-09-26 07:02] LABS: % IRON SATURATION 5 % (15-50); IRON 10 ug/dL (65-175); TOTAL IRON BINDING CAPACITY 192 ug/dL (261-478); TRANSFERRIN 137 mg/dL (174-364)
[2019-09-26 08:15] VITALS: BP 127/58
[2019-09-26 08:18] VITALS: BP 127/58
[2019-09-26 08:45] LABS: PLATELET ESTIMATE SLIGHTLY DECREASED; PLATELET MORPHOLOGY COMMENT FEW EDTA CLUMPING; RBC MORPHOLOGY COMMENT NORMAL
[2019-09-26] MEDS: DONEPEZIL HCL 5 MG TAB PO SCH (09:07)
[2019-09-26] MEDS: MEMANTINE 10 MG TAB PO SCH ×2 (09:07→17:24)
[2019-09-26] MEDS: LOSARTAN POTASSIUM 25 MG TAB PO SCH (09:07)
[2019-09-26] MEDS: FAMOTIDINE 20 MG/2 ML VIAL IV SCH ×2 (09:07→17:23)
[2019-09-26 11:54] VITALS: BP 133/64
--- NOTE | 2019-09-26 14:34 | Diagnostic Imaging Report ---
EXAM: CT Chest with intravenous contrast HISTORY: ^r/o PNA, ?ca mets ^[id number] ^1340 COMPARISON: CT abdomen and pelvis 09/24/2019 TECHNIQUE: CT of the chest with intravenous contrast. Coronal and sagittal reformations were obtained. DOSE REDUCTION: The examination was performed according to the departmental dose-optimization program, which includes automated exposure control, adjustment of the mA and/or kV according to patient size and/or use of iterative reconstruction technique. FINDINGS: LINES and TUBES: None. LUNGS, AIRWAYS AND PLEURA: Scattered atelectasis. Right apical 0.7 cm pleural-based scarring versus nodule. The pleural spaces are clear. HEART AND MEDIASTINUM: Multiple heterogeneous thyroid nodules measuring up to 3.1 cm. No significant mediastinal, hilar, or axillary lymphadenopathy. Cardiomegaly. SOFT TISSUES AND BONES: Unremarkable. IMPRESSION: 1. Right apical 0.7 cm pleural-based scarring versus nodule. Attention on follow-up. Otherwise, no evidence of acute intrathoracic abnormality. 2. Multiple heterogeneous thyroid nodules measuring up to 3.1 cm. Recommend thyroid ultrasound. 3. See dedicated abdomen and pelvis CT from 09/24/2019 for findings. Signed by: Brian Guallpa MD on 09/26/2019 2:31 PM
[2019-09-26 16:10] VITALS: BP 127/88
[2019-09-26] MEDS ORDERED: SODIUM FERRIC GLUCONATE COMPLX 125 MG in SODIUM CHLORIDE 0.9% 100 ML 100 ML IV ONE (16:15)
[2019-09-26 20:00] VITALS: BP 151/78
[2019-09-26] MEDS: PAROXETINE HCL 20 MG TAB PO SCH (21:06)
[2019-09-26] MEDS: MELATONIN 5 MG TABLET PO SCH (21:06)
[2019-09-26] MEDS: RISPERIDONE 0.5 MG TAB PO PRN (21:06)
--- NOTE | 2019-09-26 23:36 | Progress Note ---
DATE: 09/26/2019 GI Progress Report SUBJECTIVE: The patient reports no more fever. Eating and drinking fine. He also has had a bowel movement this morning. Denies any abdominal pain. REVIEW OF SYSTEMS: GENERAL: No fever or chills. Admits to some weakness. CVS: No chest pain or palpitation. RESPIRATORY: No cough or expectoration. MEDICATIONS: Melatonin 5 mg p.o. at bedtime, risperidone 0.5 mg q.12 hours p.o. as needed, paroxetine 20 mg p.o. at bedtime, memantine 10 mg p.o. twice daily, cefepime 2 g IV q.8 hours, metronidazole 500 mg IV q.8 hours, famotidine 20 mg IV twice daily, losartan 25 mg p.o. daily, donepezil 5 mg p.o. daily, acetaminophen 650 mg p.o. q.4 hours as needed, ondansetron 4 mg IV q.6 hours as needed, hydralazine 10 mg IV q.4 hours as needed. PHYSICAL EXAMINATION: VITAL SIGNS: Temperature 98.6, pulse 85, respirations 22, blood pressure 151/78, oxygen saturation 100% on room air. GENERAL: Not in any apparent distress. HEENT: Oral mucosa is moist. Anicteric sclerae. ABDOMEN: Soft. Mild right upper quadrant tenderness with palpation. Mildly palpable liver, which is tender. No free fluids. No other mass or hernia. Positive bowel sounds. LABORATORY DATA: WBC has come down to 9.26 from 10.82, hemoglobin down to 7.9 from 9.0, hematocrit 25.2 from 28, platelet count is 135. Sodium 139, potassium 4.0, chloride 105, bicarb 24, BUN 16 and creatinine 0.75. IMAGIN. Chest with IV contrast showed a right apical 0.7 cm pleural based scarring versus nodule. Attention on the followup. Otherwise, no evidence of acute intrathoracic abnormality. 2. Multiple heterogeneous thyroid nodules measuring up to 3.1 cm. Recommend thyroid ultrasound. 3. Dedicated abdomen and pelvis CT from 09/24/2019 for findings. IMPRESSION: 1. Multiple liver masses consistent with liver metastasis, primary is most likely either cholangiocarcinoma, pancreatic head malignancy, remotely possible duodenal malignancy as well. 2. Endoscopic ultrasound fine-needle aspiration of the brady hepatis lymph node, cyst under liver was also aspirated on 09/21/2019, by Dr. Adamson. The patient presented with fever post endoscopic ultrasound fine-needle aspiration. The patient is currently on antibiotic. White count is almost normalized. The patient is no longer having any fever. I recommend to discontinue intravenous antibiotic and switch to oral Augmentin for next 3-5 days. 3. Drop in hemoglobin from 9.0 to 7.9 today. No gross gastrointestinal bleeding. I suspect this would be most likely the patient's baseline hemoglobin, prior values were likely due to hemoconcentration. Oncology Service has been involved, some tumor markers has been ordered. EUS FNA biopsy result is pending from [facility]. Magdy Quiroga MD [facility]/JOE /[id number]
[2019-09-27] VITALS: BP 126/69
[2019-09-27] MEDS: CEFEPIME 2 GM/NS 0.9% 100 ML 100 ML IV SCH ×2 (02:57→10:09)
[2019-09-27] MEDS: METRONIDAZOLE 500MG/NS 100ML 100 ML IV SCH ×3 (02:57→16:28)
[2019-09-27] MEDS: ACETAMINOPHEN 325 MG TAB PO PRN ×2 (03:24→18:16)
[2019-09-27 05:14] VITALS: BP 105/58
[2019-09-27 05:56] LABS: BASOPHILS % 0.2 % (0.0-1.0); EOSINOPHILS # (AUTO) 0.2 (0.0-0.4); EOSINOPHILS % 2.1 % (0.0-6.0); HEMATOCRIT 23.8 % (38.2-49.6); HEMOGLOBIN 7.4 g/dL (14.0-18.0); LYMPHOCYTES # (AUTO) 0.9 (1.0-3.2); LYMPHOCYTES % 11.6 % (18.0-39.1); MEAN CORPUSCULAR HEMOGLOBIN 28.9 pg (28-32); MEAN CORPUSCULAR HGB CONC 31.1 g/dL (31-35); MONOCYTES # (AUTO) 0.8 (0.2-0.8); MONOCYTES % 9.8 % (4.4-11.3); NEUTROPHILS # (AUTO) 6.1 (2.1-6.9); NEUTROPHILS % 75.9 % (38.7-80.0); PLATELET COUNT 156 x10e3/uL (140-360); RED BLOOD COUNT 2.56 x10e6/uL (4.3-5.7); RED CELL DISTRIBUTION WIDTH 12.1 % (11.7-14.4)
[2019-09-27 06:16] LABS: ALBUMIN/GLOBULIN RATIO 0.6 (0.8-2.0); ALKALINE PHOSPHATASE 101 IU/L (40-150); ANION GAP 11.9 mmol/L (8-16); BLOOD UREA NITROGEN 19 mg/dL (7-26); BUN/CREATININE RATIO 20 (6-25); CALCIUM 7.8 mg/dL (8.4-10.2); CARBON DIOXIDE 22 mmol/L (22-29); CHLORIDE 107 mmol/L (98-107); CREATININE, SERUM 0.94 mg/dL (0.72-1.25); EST GLOMERULAR FILTRATION RATE > 60 ML/MIN (60-); GLUCOSE 181 mg/dL (74-118); MAGNESIUM 1.7 MG/DL (1.3-2.1); POTASSIUM 3.9 mmol/L (3.5-5.1); SODIUM 137 mmol/L (136-145)
[2019-09-27 06:18] LABS: ALANINE AMINOTRANSFERASE < 6 IU/L (0-55)
--- NOTE | 2019-09-27 07:00 | NUR ---
BEDSIDE SHIFT REPORT FROM WAREHOUSE SUPERVISOR RN. PT DENIES NEEDS AT THIS TIME.
[2019-09-27 08:17] VITALS: BP 96/50
[2019-09-27 08:21] VITALS: BP 96/50
[2019-09-27] MEDS: DONEPEZIL HCL 5 MG TAB PO SCH (08:53)
[2019-09-27] MEDS: FAMOTIDINE 20 MG/2 ML VIAL IV SCH ×2 (08:53→17:24)
[2019-09-27] MEDS: LOSARTAN POTASSIUM 25 MG TAB PO SCH (08:54)
[2019-09-27] MEDS: MEMANTINE 10 MG TAB PO SCH ×2 (08:54→17:00)
[2019-09-27] MEDS ORDERED: CEFDINIR300 MG PO (10:27)
[2019-09-27] MEDS ORDERED: DOCUSATE SODIU100 MG PO (10:27)
[2019-09-27] MEDS ORDERED: ASCORBIC ACID500 MG PO (10:27)
[2019-09-27] MEDS ORDERED: RISPERDAL0.5 MG PO ×2 (10:27→10:36)
[2019-09-27] MEDS ORDERED: FLAGYL500 MG PO (10:27)
[2019-09-27] MEDS ORDERED: FERROUS SULFAT325 MG PO (10:27)
--- NOTE | 2019-09-27 11:23 | NUR ---
Cm called and spoke with pt's grandson Jostin Day [phone] about home health. States he was agreeable with setting up home health. States pt has not had home health previously. Gave him options of home health companies in network. Gave choice for [facility], [facility] and [facility]. IMM letter discussed also. He verbalized understanding. Signed choice letter and IMM placed in chart. Copies with each company's contact information left at bedside. Informed Jostin that referral will be sent to [facility]. Home health referral faxed to [facility] at [phone] / . Liliane Rutledge with [facility] was notified of referral.
[2019-09-27 11:28] VITALS: BP 142/100
--- NOTE | 2019-09-27 12:24 | NUR ---
Per Liliane with [facility], they are out of network with pt's insurance. Pt does not have out of network benefits. Referral sent to [facility] at [phone] / .
--- NOTE | 2019-09-27 12:59 | NUR ---
Received call from Patricia with [facility]. States they are unable to accept pt due to staffing. called pt's grandchristina Frankel. States can use any company that takes insurance. Will update him on which company is able to accept pt. Referral faxed to [facility] [place] at [phone]. Pedro Luis Barriga with [facility] was informed of referral and anticipated dc for today.
[2019-09-27] MEDS ORDERED: SODIUM FERRIC GLUCONATE COMPLX 125 MG in SODIUM CHLORIDE 0.9% 100 ML 100 ML IV ONE ×2 (13:45→15:45)
[2019-09-27 15:48] VITALS: BP 140/67
[2019-09-27 15:50] LABS: HEMATOCRIT 26.8 % (38.2-49.6); HEMOGLOBIN 8.1 g/dL (14.0-18.0)
--- NOTE | 2019-09-27 16:26 | Diagnostic Imaging Report ---
PROCEDURE: X-RAY MODIFIED BARIUM SWALLOW COMPARISON: None. INDICATION: Aspiration Radiation Details: Fluoroscopy time: 1.5 minutes Cumulative dose: 10.7 mGy DISCUSSION: Fluoroscopic examination was performed in conjunction with speech pathology during swallowing a variety of thin and thick liquid consistencies. Provided images demonstrate no laryngeal penetration or aspiration. CONCLUSION: Modified barium swallow demonstrating no laryngeal penetration or aspiration. Please refer to the speech pathology report for further details. Signed by: Eleonora Omer MD on 09/27/2019 4:23 PM
--- NOTE | 2019-09-27 16:33 | NUR ---
Spoke with Pedro Luis with [facility] [place]. They are accepting pt. Will reach out to family for admit date/time. CM called and spoke to pt's grandson Jostin. Informed him of home health acceptance. Gave him home health name and contact number.
[2019-09-27] MEDS ORDERED: ONDANSETRON HCL 4 MG ORAL DISINTEGRATING TAB PO PRN (16:45)
[2019-09-27] MEDS: RISPERIDONE 0.5 MG TAB PO PRN (18:16)
--- NOTE | 2019-09-28 09:48 | Discharge Summary ---
ADMISSION DIAGNOSES: Abdominal pain, possible aspiration pneumonia, dehydration, acute kidney injury, liver lesions, dementia. DISCHARGE DIAGNOSES: Abdominal pain, possible aspiration pneumonia, dehydration, acute kidney injury, liver lesions, dementia, rule out aspiration pneumonia, rule out pneumonia, rule out urinary tract infection, rule out coronavirus disease 2019, rule out bacteremia. HISTORY: Hypertension and dementia. SURGICAL HISTORY: Left inguinal hernia repair, recent fine-needle aspiration of several liver lesions, cataract surgery, biliary stent. FAMILY HISTORY: Noncontributory. SOCIAL HISTORY: Noncontributory. HOSPITAL COURSE: An 88-year-old male admits with fever. The patient was recently admitted with abnormal liver enzymes and obstructive jaundice. He had a biliary stent placed on the prior admission. On this admission, CT of the chest showed central vascular congestion, accentuated by low lung volume, underlying pneumonia and perihilar regions cannot be excluded. CT of the abdomen and pelvis showed several new hepatic hypodense lesions, bibasilar perihilar reticular lung markings, enlarged prostate gland. GI as well as Oncology were consulted. CT of the chest was done, which showed right apical 0.7 cm pleural-based scarring versus nodule, otherwise no evidence of acute intrathoracic abnormality. Thyroid nodules measuring up to 3.1 cm. The patient was advised to follow up for thyroid ultrasound. Blood cultures were negative. Urine culture was negative. Fever resolved once receiving Zithromax, Rocephin, and Flagyl. Once aspiration pneumonia was excluded, Zithromax was stopped. The patient remained anemic during hospitalization. After speaking with the grandson, the patient has had hemorrhoids before. Prior to discharge the hemoglobin went up, so the patient was discharged home. He was given new prescriptions for ascorbic acid, Omnicef, Colace, iron, Flagyl, and risperidone. He was advised to follow up with Oncology for the fine-needle aspiration result and he was advised to follow up for an ultrasound of his thyroid. The patient is tolerating diet, no longer having fever. Since GI has no plan, the patient will discharge home with family and physical therapy. Family understands discharge instructions and agrees to plan. Vital signs stable, the patient is afebrile. Dictated by Kassi Clement, DANTE Agusto Dimas MD ALEXANDER/MODL /[id number]
== END 2019-09-27 19:01 | disposition home or self-care (01) | DRG 436 ==
LOC: ER 00:37 → ERHOLD 05:13 → MED/SURG2 22:35
PROVIDERS: ADMIT Internal Medicine; ATTEND Internal Medicine
DX: C78.7 Secondary malignant neoplasm of liver and intrahepatic bile duct (principal); N17.9 Acute kidney failure, unspecified; G30.9 Alzheimer's disease, unspecified; F02.80 Dementia in other diseases classified elsewhere, unspecified severity, without behavioral disturbance, psychotic disturbance, mood disturbance, and anxiety; I10 Essential (primary) hypertension; K76.9 Liver disease, unspecified; E86.0 Dehydration; C80.1 Malignant (primary) neoplasm, unspecified; D69.6 Thrombocytopenia, unspecified; D63.8 Anemia in other chronic diseases classified elsewhere; E04.1 Nontoxic single thyroid nodule; Z11.59 Encounter for screening for other viral diseases
CPT/HCPCS: 36415; 71045; 71260; 74177; 74230; 80048; 80053; 80061; 81001; 82105; 82140; 82378; 82550; 82553; 82607; 82728; 82746; 83036; 83540; 83605; 83735; 84100; 84145; 84152; 84443; 84466; 84484; 85014; 85018; 85025; 85045; 85610; 85730; 86301; 87040; 87086; 87635; 93005; 93306; 96367; 97139; 99251; 99284; J0456; J2916; J7030; J7050; Q9967